=== PATIENT | female | born 2000 | race African-American/Black ===

== ENCOUNTER 2021-06-25 14:57 | Emergency (ER) | payer OTHER ==
[~2021-06-25] VITALS: Ht 165.1 cm; Wt 77.1 kg
[2021-06-25 15:00] VITALS: BP 112/55
[2021-06-25 15:29] LABS: URINE BILIRUBIN NEGATIVE (Negative); URINE BLOOD NEGATIVE (Negative); URINE CLARITY CLEAR; URINE COLOR YELLOW; URINE GLUCOSE-RANDOM* NEGATIVE (Negative); URINE KETONES NEGATIVE (Negative); URINE NITRITE-REFLEX NEGATIVE (Negative); URINE PROTEIN (DIPSTICK) NEGATIVE (Negative); URINE UROBILINOGEN 0.2 E.U./dl (0.2-1.0)
[2021-06-25 15:31] LABS: URINE LEUKOCYTES-REFLEX 3+ (Negative)
[2021-06-25 15:41] LABS: BACTERIA-REFLEX 1-9 Few /HPF (None Seen); CASTS None Seen /LPF (None Seen); CRYSTALS None Seen /LPF (None Seen); SQUAMOUS 4-10 Moderate /LPF (0-3); URINE RBC 1-2 Rare /HPF (NONE SEEN); URINE WBC-REFLEX 6-15 Few /HPF (0-5)
[2021-06-25] MEDS ORDERED: 3-DAY VAGINAL C21 GM VAG (16:34)
[2021-06-25] MEDS ORDERED: CEPHALEXIN 250250 M1 PO ×2 (16:34→17:11)
== END 2021-06-25 16:34 | disposition home or self-care (01) ==
LOC: ER 14:57
PROVIDERS: Nurse Practitioner Family
DX: O98.813 Other maternal infectious and parasitic diseases complicating pregnancy, third trimester (principal); B37.3 Candidiasis of vulva and vagina; Z3A.34 34 weeks gestation of pregnancy; O23.43 Unspecified infection of urinary tract in pregnancy, third trimester